=== PATIENT | male | born 1965 | race Caucasian/White ===

== ENCOUNTER 2022-12-21 20:20 | Emergency (ER) | payer MEDICARE, MEDICAID ==
[~2022-12-21] VITALS: Ht 170.2 cm; Wt 90.7 kg
[~2022-12-21 20:20] MED LIST: ASPI-999 PO; LISI20TA26 PO; METF-399 PO; METO50TA7 PO; QUET50TA23 PO; ROSU20TA73 PO
[2022-12-21] MEDS ORDERED: CLINDAMYCIN 150 MG CAPSULE PO ONE ×2 (23:00→23:04)
[2022-12-21] MEDS ORDERED: CLIN-144 PO (23:01)
--- NOTE | 2022-12-21 23:01 | ED EENT ---
History of Present Illness General Chief Complaint: Post OP Complications/Pain Stated Complaint: POST-OP PAIN, MOUTH SUTURE ISSUES Nursing Triage Note: PT AMB TO RM 3 ALONGSIDE AUNT W C/O PAIN AND POSS INFECTION FOLLOWING SURGERY FOR CANCER. SURGERY DONE BY ENT AT [facility] IN [place] ON 12/11/22. PT ALERT, FROM [facility]. AUNT REPORTS SHE IS HIS LEGAL GUARDIAN. Source: patient Exam Limitations: no limitations History of Present Illness Date Seen by Provider: Dec 21, 2022 Time Seen by Provider: 21:02 Initial Comments This 57 year old gentleman presents to the ER with his guardian with concerns about a rather significant dehiscence of a surgical wound on the right lower lip. He has intellectual disabilities and lives in a jail in [place], [place]. He is here with his guardian. The tumor was removed December [address] Bey in [place]. His guardian reports that the lip seem to be abnormally swelling 1 week ago when she last saw it. Today she received a call in the morning stating the wound had opened up and was draining. She does not know when exactly the dehiscence occurred. By the general appearance of the wound, it appears likely the wound dehisced several days ago. She is concerned it may have been infected with the increased swelling and then ruptured open. He is afebrile and denies any pain. There is some purulent appearing drainage at the apex of the wound. Guardian does not believe the dietary restrictions were followed while at the jail. They presented to the [facility] emergency room and waited several hours. They therefore elected to come to the [facility] emergency room instead. He is not presently on any antibiotics. Allergies and Home Medications Allergies Coded Allergies: No Known Drug Allergies (Unverified , 12/21/22) Patient Home Medication List Home Medication List Reviewed: Yes Aspirin (Aspirin) 81 Mg Tab.chew, 81 MG PO DAILY, (Reported) Entered as Reported by: MIGUEL HAMMOND on 04/13/22926 Clindamycin HCl (Clindamycin HCl) 300 Mg Capsule, 300 MG PO QID Prescribed by: RADHA WINTER on 12/21/222300 Lisinopril (Lisinopril) 20 Mg Tablet, 20 MG PO DAILY, (Reported) Entered as Reported by: MIGUEL HAMMOND on 04/13/22926 Metformin HCl (Metformin HCl) 1,000 Mg Tablet, 1,000 MG PO BID, (Reported) Entered as Reported by: MIGUEL HAMMOND on 04/13/22926 Metformin HCl (Metformin HCl) 1,000 Mg Tablet, 1,000 MG PO BID, (Reported) Entered as Reported by: MIGUEL HAMMOND on 04/13/22926 Metoprolol Succinate (Metoprolol Succinate) 50 Mg Tab.er.24h, 50 MG PO DAILY, (Reported) Entered as Reported by: MIGUEL HAMMOND on 04/13/22926 Quetiapine Fumarate (Quetiapine Fumarate) 50 Mg Tablet, 50 MG PO BID, (Reported) Entered as Reported by: MIGUEL HAMMOND on 04/13/22926 Rosuvastatin Calcium (Rosuvastatin Calcium) 20 Mg Tablet, 20 MG PO HS, (Reported) Entered as Reported by: MIGUEL HAMMOND on 04/13/22926 Review of Systems Review of Systems Constitutional: no symptoms reported Eyes: No Symptoms Reported Nose: no symptoms reported Mouth: see HPI Throat: no symptoms reported Respiratory: no symptoms reported Cardiovascular: no symptoms reported Gastrointestinal: no symptoms reported Skin: see HPI Neurological: See HPI Hematologic/Lymphatic: See HPI Immunological/Allergic: no symptoms reported Past Jlbvkwu-[id number]-[id number] Hx Patient Social History Tobacco Use?: No Use of E-Cig and/or Vaping dev: No Substance use?: No Alcohol Use?: No Past Medical History Surgeries: Yes (Lesion excision from right lower lip) Respiratory: No Cardiac: No Neurological: Yes (Intellectual disability) Reproductive Disorders: No Gastrointestinal: No Musculoskeletal: No Endocrine: Yes Diabetes, Non-Insulin dep HEENT: Yes (lip tumor) Cancer: Yes Skin (lip tumor) Psychosocial: No Integumentary: No Physical Exam Vital Signs Vital Signs - First Documented 12/21/22 20:28 Temp 36.5 Pulse 122 Resp 22 B/P (MAP) 111/88 (96) Pulse Ox 95 O2 Delivery Room Air Height, Weight, BMI Height: '" Weight: lbs. oz. kg; 31.00 BMI Method: General Appearance: WD/WN, no apparent distress Eyes: bilateral eye normal inspection, bilateral eye PERRL Ears: bilateral ear auricle normal Nose: normal inspection Mouth/Throat: pharynx normal, other (Large dehiscence of a surgical wound on the right lower lip. There is some drainage from the apex of the wound that may be purulent or exudative in nature. There are no significant surrounding inflammatory changes. No bleeding.) Neck: normal inspection Cardiovascular: regular rate, rhythm, no edema, no murmur Respiratory: lungs clear, normal breath sounds, no respiratory distress Neurologic/Psychiatric: no motor/sensory deficits, alert, normal mood/affect Skin: normal color, warm/dry Progress/Results/Core Measures Results/Orders My Orders Orders - RADHA BLUNT MD Clindamycin Capsule (Clindamycin Capsule (12/21/22 23:00) Clindamycin Capsule (Clindamycin Capsule (12/21/22 23:04) Vital Signs/I&O Blood Pressure Mean: 96 Progress Progress Note : Progress Note Student was in the room to obtain history and evaluate the patient for comfort and stability at 2101 and report was given to me at 2119. Patient was found to have stable vital signs, stable wound not amenable to immediate intervention, and no immediate needs for symptom control. My exam was deferred until 2214 as more urgent needs required my attention in the ER at that time. I discussed the situation with Dr. Davis, ENT oncology radiation physician for Dr. Ellison. He recommended that the patient be seen in the clinic on Dec [address] Ellison to arrange surgical correction of this dehiscence in the emergency room. Patient was placed on clindamycin with the first dose being received in the emergency room as infection cannot be completely ruled out as the cause of his drainage. See discharge instructions for further discussion. Departure Impression Primary Impression: Wound dehiscence Disposition: 01 HOME, SELF-CARE Condition: Improved Departure-Patient Inst. Decision time for Depature: 22:56 Referrals: NO,LOCAL PHYSICIAN (PCP) Primary Care Physician Patient Instructions: Wound Dehiscence Add. Discharge Instructions: Per Dr. Davis (Dr. Bey's partner) Toni should follow-up in the office with Dr. Bey in the office on December 23. Please call their office first thing tomorrow morning to schedule an appointment time. Inform the staff that this is an urgent follow-up for a wound dehiscence. You may read these discharge instructions directly to the staff for clarification. Until then, continue using antibiotics as prescribed. Eat and drink food and beverage that is easy to consume without much chewing. Avoid foods and beverages that may sting the wound such as citrus fruits and juices, tomato products, salty items, spicy foods, etc. Return to care if there are worsening symptoms despite following these instructions. Dr. Davis indicated that a return to surgery under anesthesia will likely be necessary to correct this wound dehiscence. Scripts Clindamycin HCl (Clindamycin HCl) 300 Mg Capsule 300 MG PO QID, #40 CAP Prov: RADHA BLUNT MD 12/21/22 RADHA BLUNT MD Dec 21, 2022 23:01
[2022-12-21 23:13] VITALS: BP 125/87
== END 2022-12-21 23:13 | disposition home or self-care (01) ==
LOC: ER 20:29
DX: T81.31XA Disruption of external operation (surgical) wound, not elsewhere classified, initial encounter (principal)
CPT/HCPCS: 99283